=== PATIENT | male | born 1995 | race Caucasian/White ===

== ENCOUNTER 2021-07-07 06:09 | Emergency (ER) | payer BC ==
[2021-07-07] MEDS ORDERED: Midazolam HCl 2 mg/2 ml Vial ONE (06:46)
[2021-07-07] MEDS ORDERED: Fentanyl 100 MCG/2 ML VIAL ONE (06:46)
[2021-07-07] MEDS ORDERED: Succinylcholine 200 MG/10 ml SYRINGE FS ONE (07:09)
[2021-07-07] MEDS ORDERED: Dexamethasone 20 MG/5 ML VIAL ONE (07:09)
[2021-07-07] MEDS ORDERED: PROPOFOL 200 MG/20 ML VIAL ONE (07:09)
[2021-07-07] MEDS ORDERED: Ondansetron PF 4 MG/2 ML Vial ONE (07:09)
== END 2021-07-07 07:05 | disposition admitted as inpatient to this hospital (09) ==
LOC: ERS 06:09
PROC: 0DC28ZZ Extirpation of Matter from Middle Esophagus, Via Natural or Artificial Opening Endoscopic (ICD-10-PCS; principal; 2021-07-07)
DX: T18.128A Food in esophagus causing other injury, initial encounter (principal); K22.2 Esophageal obstruction; F17.290 Nicotine dependence, other tobacco product, uncomplicated; X58.XXXA Exposure to other specified factors, initial encounter
CPT/HCPCS: 99284; J1100; J2250; J2405; J2704; J3010